=== PATIENT | female | born 1940 | race Caucasian/White ===

== ENCOUNTER 2020-04-06 07:19 | Emergency (ER) | payer MEDICARE, SELFPAY ==
[2020-04-06 07:27] VITALS: PULSE 65; RESP 17; TEMP 36.4; O2SAT 98; BMI 19.2
--- NOTE | 2020-04-06 07:32 | ED_ITS ---
HPI - Neuro Symptoms/Deficit General: Chief Complaint: Neuro Symptoms/Deficit Stated Complaint: THINKS SHE HAD A TIA Time Seen by Provider: 04/06/20 07:32 History of Present Illness: HPI Narrative: Patient is an 80-year-old female who comes to the ED with neuro symptoms. Past medical history of hypothyroidism and hyperlipidemia. Patient says this morning when she woke up she felt very dizzy and the room was spinning. Patient's is also present and states that she seemed a bit confused when she would talk. Patient says that symptoms resolved before arriving to the ED. She says currently she just feels tired. Denies any current neurological deficits such as vision changes, numbness, tingling or lack of sensation on face and extremities. Denies any weakness to one side of the body. Associated symptoms: Deny chest pain, headache(s), nausea or vomiting Review of Systems Const: Reports: fatigue; Denies: fever(s) or chills Eyes: Denies: change in vision or eye discomfort ENMT: Denies: throat pain, odynophagia, nasal discharge or nasal congestion Card: Denies: chest pain, palpitations, edema, swelling of feet/ankles, dyspnea on exertion or orthopnea Resp: Denies: dyspnea, productive cough or non-productive cough GI: Denies: abdominal pain, nausea, vomiting, diarrhea, constipation or hematochezia : Denies: flank pain, dysuria or hematuria Musc: Denies: neck pain, back pain or extremity swelling Skin/Breast: Denies: rash or new lesions Neuro: Reports: dizziness (Resolved before arrival to the ED) and confusion (resolved before arrival to the ED); Denies: headache(s), numbness in extremities or weakness in extremities [facility] ED PFSH: Social History Smoking and tobacco status: never smoked Physical Exam Const: COMMON NORMALS: no acute distress, patient oriented x3, healthy appearing and alert GENERAL APPEARANCE: cooperative and comfortable ORIENTATION/CONSCIOUSNESS: Yes oriented to person and Yes oriented to place HENMT: COMMON NORMALS: normocephalic HEAD & SCALP: normocephalic MOUTH: Normal oral and palatal mucosa present THROAT: posterior oropharynx normal and uvula midline Eye: COMMON NORMALS: Equal, round and reactive pupils present and EOMs intact bilaterally PUPIL: Yes Equal, round and reactive pupils present Neck/C-Spine: COMMON NORMALS: supple GENERAL: Yes normal visual inspection Resp: COMMON NORMALS: normal respiratory effort, No retractions, No use of accessory muscles and clear to auscultation bilaterally AUSCULTATION: clear to auscultation bilaterally Cardio: COMMON NORMALS: regular rate, regular rhythm, S1 normal heart sound present, S2 normal heart sound present, No gallops present (Cardio), No clicks present (Cardio), No murmurs present (Cardio) and Peripheral pulses 2+ throughout RATE: regular rate RHYTHM: regular rhythm HEART SOUNDS: S1 normal heart sound present and S2 normal heart sound present PERIPHERAL PULSES: Peripheral pulses 2+ throughout GI: COMMON NORMALS: Normal to inspection, nondistended, normoactive bowel sounds present, Soft to palpation, non-tender and no masses PALPATION: Yes S oft to palpation : COMMON NORMALS: Yes no CVA tenderness BLADDER/KIDNEY EXAM: Yes no CVA tenderness Back/Pelvis: COMMON NORMALS: no CVA tenderness Extremity: COMMON NORMALS: normal to inspection and no pedal edema Neuro: COMMON NORMALS: patient oriented x3, CN's II-XII intact bilaterally, moves all extremities, no focal motor deficits and no sensory deficits noted SENSORIUM/ORIENTATION: Yes alert, Yes oriented to person and Yes oriented to place COORDINATION/BALANCE: [id number]-up-[id number] test normal and wblo-sn-hejn test normal GAIT: Yes Normal gait present SENSORY EXAM: Yes extremities (intact) MOTOR EXAM: 5/5 motor strength present throughout COORDINATION: mohrwq-pl-eoyo test normal and zoqt-re-vyvj test normal Skin: COMMON NORMALS: no rashes or lesions noted GENERAL SKIN EXAM: no rashes or lesions noted and dry skin Course Reevaluation(s): Reevaluation #1: pt says she is experiencing some dizziness that comes and goes, but describes it as mild. Vital Signs: Vital signs: Vital Signs Temperature 97.5 F L 04/06/20 07:27 Pulse Rate 68 04/06/20 09:26 Respiratory Rate 18 04/06/20 09:26 Blood Pressure 156/81 04/06/20 09:26 Pulse Oximetry 98 04/06/20 09:26 MDM - Neuro Symptoms/Deficit MDM Narrative: Medical decision making narrative: pt is 80 y/o female that comes to the ED with dizziness and confusion. Symptoms resolved upon arrival to the ED. Neuro exam was normal and showed no deficits. CT of the head showed no acute findings. pt was still experiencing some mild dizziness. I told patient that i would like to do a CTA of neck and head to further evaluate for stroke, but pt denied getting CTA. I explained to her the possible risks and she understood. Pt was diagnosed with acute labrynthitis and given a prescription for plavix due to the risk of stroke. She will follow up the her PCP in the next 5 days. Pt was informed to come back to ED for reevaluation if symptoms worsen. pt understood and agreed with plan. Imaging Data^: CT Head: Attestation: I personally reviewed and interpreted this imaging study as follows: Radiologist's impression: [address] [address] [address] Scan Report Signed Patient: Roxanna Leone Unit #: [id number] : 1940 Age/Sex: 80 / F ADM Date: 04/06/20 Loc: ER Room/Bed: Attending Dr: Ordering Provider/Ordering MD: Surjit Branham Date of Service: 04/06/20 Procedure(s): CT head wo con* [id number] Accession Number(s): [id number] Report Number: [id number] PROCEDURE INFORMATION: Exam: CT Head Without Contrast Exam date and time: 04/06/2020 7:32 AM Age: 80 years old Clinical indication: Dizziness and speech disturbance; Patient HX: Onset of dizziness and transient loss of speech this a. M. History of TIA per patient. ; Additional info: Dizziness and unable to speak TECHNIQUE: Imaging protocol: Computed tomography of the head without contrast. Radiation optimization: All CT scans at this facility use at least one of these dose optimization techniques: automated exposure control; mA and/or kV adjustment per patient size (includes targeted exams where dose is matched to clinical indication); or iterative reconstruction. COMPARISON: CT head wo con* [id number] 07/14/2017 10:28 AM RADIATION DOSE METRICS: Total DLP: 637.69 mGy-cm FINDINGS: Brain: No hemorrhage. No edema, mass effect or midline shift. Mistry-white matter differentiation is preserved. There are basal ganglia calcifications.Periventricular and deep white matter hypodensities compatible with chronic microvascular ischemic changes. Ventricles: No ventriculomegaly. Bones/joints: No acute fracture. Sinuses: No acute sinusitis. Mastoid air cells: No mastoid effusion. Soft tissues: Unremarkable. CT/CT head wo con* [id number] IMPRESSION: No acute intracranial abnormality. Radiation Dose CTDIVOL = (mGy): DLP = 637.69 (mGy-cm) Dictated By: Johanna Greer MD Signed By: Johanna Greer MD Signed Date/Time: 04/06/20810 DD/ 9 Discharge Plan Discharge Patient Disposition: Home, Self-Care Clinical Impression: Acute labyrinthitis Qualifiers: Laterality: unspecified laterality Qualified Code(s): H83.09 - Labyrinthitis, unspecified ear Condition: Stable Prescriptions: New Plavix 75 mg tablet 75 mg PO DAILY Qty: 30 RF: 0 Discharge Orders: Discharge Order (Routine); Ordered 04/06/20 Ordered By: Surjit Branham Referrals: Royer Stockton DO [Primary Care Provider] - Discharge Diet: Regular Discharge Activity: Increase activity as tolerated Patient Instructions: Vertigo (ED), Benign Paroxysmal Positional Vertigo (ED) Activity Restrictions/Additional Instructions: Follow-up with your PCP in 5 days for reevaluation. Start taking Plavix as prescribed. PCP will determine length of Plavix course after evaluation. Discharge Date/Time: 04/06/20 09:31 Coding Level of Care Code ED Director Of Corporate Marketing for Chg Fwd Exam Comprehensive
--- NOTE | 2020-04-06 07:56 | PC.NURSE ---
Pt assisted to BSC, states she is dizzy but is steady on her feet. Urine sample requested at this time. Pt instructed on how to give sample.
[2020-04-06 09:26] VITALS: BP 156/81; PULSE 68; RESP 18; O2SAT 98
== END 2020-04-06 09:31 | disposition home or self-care (01) ==
PROVIDERS: Emergency Provider Physician Assistant; PCP Electrodiagnostic Medicine
DX: H83.09 Labyrinthitis, unspecified ear (principal); Z79.02 Long term (current) use of antithrombotics/antiplatelets
CPT/HCPCS: 12345; 70450; 99281; 99282

== ENCOUNTER → 2020-05-28 13:55 | Outpatient (BNVA) | payer MEDICARE, SELFPAY | PROVIDERS: PCP Electrodiagnostic Medicine; Referring Provider Dermatology; Visit Provider Dermatology | DX: L82.1 Other seborrheic keratosis (principal); B35.1 Tinea unguium; D69.2 Other nonthrombocytopenic purpura; Z12.83 Encounter for screening for malignant neoplasm of skin | CPT/HCPCS: 99203 ==

== ENCOUNTER 2021-01-26 09:11 | Outpatient (CLI) | payer MEDICARE, SELFPAY ==
--- NOTE | 2021-01-26 09:35 | XRR_ITS ---
PROCEDURE INFORMATION: Exam: XR Right Shoulder Exam date and time: 01/26/2021 9:49 AM Age: 80 years old Clinical indication: Pain; Shoulder; Right; Additional info: Chronic R shoulder pain/r rotator cuff syndrome TECHNIQUE: Imaging protocol: XR Right shoulder. Views: 2 or more views. COMPARISON: No relevant prior studies available. FINDINGS: Bones/joints: Mild degenerative changes are present with mild spurring on the glenoid. Otherwise the glenohumeral joint is unremarkable. There is no fracture or other acute abnormality. Soft tissues: Normal. XR/XR shoulder RT min 2V* [id number] IMPRESSION: Mild degenerative disease. No acute abnormality.
== END 2021-01-26 09:12 | disposition home or self-care (01) ==
PROVIDERS: PCP Electrodiagnostic Medicine; Visit Provider Electrodiagnostic Medicine
DX: M75.101 Unspecified rotator cuff tear or rupture of right shoulder, not specified as traumatic (principal); M19.011 Primary osteoarthritis, right shoulder
CPT/HCPCS: 73030

== ENCOUNTER 2023-04-17 08:54 | Emergency (ER) | payer MEDICARE, SELFPAY ==
[2023-04-17 09:02] VITALS: BP 153/69; PULSE 68; RESP 18; TEMP 36.7; O2SAT 97
--- NOTE | 2023-04-17 09:19 | CT_ITS ---
WS: [id number] CT HEAD NONCONTRAST HISTORY: tia TECHNIQUE: Contiguous axial imaging performed through the brain in 2.5 mm imaging. Bone and soft tiss ue windows. Sagittal and coronal reformats reviewed. All CT scans at [facility] use at least one of these dose optimization techniques: automated exposure control; mA and/or kV adjustment per pa tient size (includes targeted exams where dose is matched to clinical indication); or iterative recon struction. DLP: 995.44 mGy.cm COMPARISON: 04/06/2020 No acute intracranial hemorrhage, midline shift or mass effect. Moderate atrophy and small vessel ischemic disease similar to the prior study. Multiple small lacunar infarcts in the basal ganglia. No new area of sulcal effacement. Mild cerebellar atrophy. Ventricles: Normal size with no hydrocephalus. No inferior displacement of the cerebellar tonsils. Paranasal sinuses: As visualized are clear. Mastoid air cells: Well pneumatized. Calvarium and scalp: Skull is intact with no soft tissue edema or swelling. Moderate atherosclerotic plaque in the distal vertebral arteries and the intracranial carotid arterie s. CT/CT head wo con* [id number] IMPRESSION: 1. No acute intracranial hemorrhage or edema. 2. Moderate atrophy and small vessel ischemic disease. 3. Multiple small bilateral lacunar infarcts. 4. Moderate atherosclerotic burden in the distal vertebral and intracranial ca rotid arteries.
--- NOTE | 2023-04-17 09:24 | W.ED.NEUROSD ---
HPI - Neuro Symptoms/Deficit General: Chief Complaint: Neuro Symptoms/Deficit Stated Complaint: memory loss, speech problems Time Seen by Provider: 04/17/23 09:14 Source: patient Mode of arrival: ambulatory History of Present Illness: 83-year-old female presents to the emergency room with complaints of difficulty with speech. She was out walking this morning could not remember some people's names felt like she was slurring her words. It is improved now. She has a history of TIAs she was previously on full-strength aspirin and a few weeks ago changed to clopidogrel and is on lovastatin she tells me 40 mg daily. No chest pain no other symptoms this time no slurring of the words this time she was seen her stroke score is 0. Patient had previously been taking at 325 mg aspirin daily was changed to clopidogrel because of her concern for it exacerbating dyspepsia and reflux. She is on statin remains on lovastatin 40 mg daily. She denies any chest pain. Onset (ago): hour(s) Time: 08:54 Last Observed Normal: 21:00 Timing confirmed by: spouse Location: speech History of same: Yes Severity: mild Relieving factors: none Exacerbating factors: none Associated symptoms: Deny chest pain, cough, diaphoresis, fevers/chills, headache(s), anorexia, malaise, nausea, seizures, short of breath, syncope, tingling, vertigo, vomiting or weakness Treatments Prior to Arrival: none Review of Systems Const: Denies: malaise or diaphoresis ENMT: Denies: throat pain, ear or mastoid pain, nasal discharge or nasal congestion Card: Denies: chest pain or syncope Resp: Denies: dyspnea, productive cough or non-productive cough GI: Denies: nausea or vomiting : Denies: flank pain, difficulty voiding, dysuria, urinary frequency or urinary urgency Skin/Breast: Denies: rash or pruritus Neuro: Denies: headache(s) or vertigo PFSH ED PFSH: Medical History TIA (transient ischemic attack) Surgical History H/O eye surgery H/O right wrist surgery Social History Smoking and tobacco status: never smoked Alcohol intake: never NIH stroke score NIHSS: Level Of Consciousness - 1a: 0 Level Of Consciousness Questions - 1b: Both Correct Level Of Consciousness Commands - 1c: Both Correct Best Gaze - 2: Normal Visual Lauren - 3: No Visual Loss Facial Palsy - 4: Normal Motor Arm Right - 5: No Drift Motor Arm Left - 5: No Drift Motor Leg Right - 6: No Drift Motor Leg Left - 6: No Drift Limb Ataxia - 7: Absent Sensory - 8: Normal Best Language - 9: No Aphasia Dysarthia - 10: Normal Extinction And Inattention - 11: 0 Score: Total Score: 0 Course Vital Signs: Vital signs: Vital Signs Temperature 98.1 F 04/17/23 09:02 Pulse Rate 58 L 04/17/23 11:20 Respiratory Rate 16 04/17/23 11:20 Blood Pressure 133/63 04/17/23 11:20 Pulse Oximetry 97 04/17/23 11:20 Oxygen Delivery Me thod Room Air 04/17/23 09:02 MDM - Neuro Symptoms/Deficit Medical Decision Making Patient is some word finding issues on occasion but no slurring of speech no other focal neurologic deficits noted. She is outside any kind of window for intervention her stroke score is essentially 0. Given her history and reported symptoms she had earlier today we will go ahead and have her start taking a baby aspirin again continue the Plavix and the lovastatin and follow-up with her primary care doctor return if she has further problems. Medical Records I reviewed the patient's medical records. Lab Data I reviewed the patient's lab results. Radiology Impressions Head CT 04/17/23 09:19 IMPRESSION: 1. No acute intracranial hemorrhage or edema. 2. Moderate atrophy and small vessel ischemic disease. 3. Multiple small bilateral lacunar infarcts. 4. Moderate atherosclerotic burden in the distal vertebral and intracranial carotid arteries. Discharge Plan Discharge Patient Disposition: Home Clinical Impression: Transient cerebral ischemia Condition: Stable Prescriptions: New aspirin 81 mg tablet,delayed release (DR/EC) 81 mg PO DAILY Qty: 30 0RF No Action lovastatin 40 mg tablet 40 mg PO DAILY levothyroxine 50 mcg tablet 50 mcg PO QAM vitamin [id number] acid 0.5-1 mg Tablet 1 tab PO DAILY Women's 50 Plus Multivitamin 400 mcg-500 mg calcium-20 mcg Tablet 1 tab PO DAILY zinc acetate 50 mg (zinc) Capsule 25 mg PO BID Calcium 600 600 mg calcium (1,500 mg) Tablet 600 mg PO DAILY cranberry 400 mg Capsule 400 mg PO DAILY Rx Instructions: administer with a meal vitamin B complex Tablet 1 tab PO DAILY Vitamin C 500 mg Tablet Extended Release 500 mg PO DAILY CoQ-10 30 mg Capsule 30 mg PO DAILY magnesium 200 mg Tablet 200 mg PO DAILY Vitamin D3 25 mcg (1,000 unit) Tablet 25 mcg PO DAILY melatonin 5 mg Tablet 5 mg PO BID curcumin-phosphatidylcholine 500 mg Capsule 500 mg PO DAILY Discharge Orders: Discharge ED (Routine); Ordered 04/17/23 Ordered By: Geoffrey Willis Referrals: Royer Stockton, [Primary Care Provider] - Discharge Diet: Usual diet Discharge Activity: Resume usual activity Patient Instructions: Opioid Safety, Pain Management Activity Restrictions/Additional Instructions: Continue to take your previously prescribed medications especially the clopidogrel and simvastatin. You should add a baby aspirin daily follow-up with your primary care doctor. Coding Level of Care Code ED Veterans Contact Representative for Macy Schwab
[2023-04-17 11:20] VITALS: BP 133/63; PULSE 58; RESP 16; O2SAT 97
== END 2023-04-17 11:20 | disposition home or self-care (01) ==
PROVIDERS: Emergency Provider Family Medicine; PCP Electrodiagnostic Medicine
DX: G45.9 Transient cerebral ischemic attack, unspecified (principal); Z86.73 Personal history of transient ischemic attack (TIA), and cerebral infarction without residual deficits
CPT/HCPCS: 70450; 99284

== ENCOUNTER → 2023-07-18 15:12 | Outpatient (BNVA) | payer MEDICARE, SELFPAY | PROVIDERS: PCP Electrodiagnostic Medicine; Visit Provider Nurse Practitioner Family | DX: L82.1 Other seborrheic keratosis (principal); L81.4 Other melanin hyperpigmentation; L57.8 Other skin changes due to chronic exposure to nonionizing radiation; D22.5 Melanocytic nevi of trunk; Z12.83 Encounter for screening for malignant neoplasm of skin | CPT/HCPCS: 99213 ==

== ENCOUNTER 2023-11-16 11:15 | Outpatient (CLI) | payer MEDICARE, SELFPAY ==
--- NOTE | 2023-11-16 11:22 | MM_ITS ---
WS: [id number] BILATERAL SCREENING DIGITAL TOMOSYNTHESIS MAMMOGRAM WITH CAD HISTORY: SCREEN COMPARISON: 05/20/2016 Bilateral CC and MLO views with tomosynthesis and synthetic mammography submitted. Computer aided det ection analyzed. Breast composition: The breasts are heterogeneously dense, which may obscure small masses. No suspici ous masses, microcalcifications or architectural distortion. IMPRESSION: MM/[place] [id number] BI-RADS: 1-Negative FOLLOW UP: 1 Year Follow-up
== END 2023-11-16 11:16 | disposition home or self-care (01) ==
LOC: RAD 11:16
PROVIDERS: PCP Electrodiagnostic Medicine; Visit Provider Electrodiagnostic Medicine
DX: Z12.31 Encounter for screening mammogram for malignant neoplasm of breast (principal)
CPT/HCPCS: 77063; 77067

== ENCOUNTER → 2024-07-18 11:07 | Outpatient (BNVA) | payer MEDICARE, SELFPAY | PROVIDERS: PCP Electrodiagnostic Medicine; Visit Provider Nurse Practitioner Family | DX: D48.5 Neoplasm of uncertain behavior of skin (principal); L82.1 Other seborrheic keratosis; L81.4 Other melanin hyperpigmentation; L57.8 Other skin changes due to chronic exposure to nonionizing radiation; D22.5 Melanocytic nevi of trunk | CPT/HCPCS: 11102; 99213 ==

== ENCOUNTER 2024-08-22 11:17 | Emergency (ER) | payer MEDICARE, SELFPAY ==
[2024-08-22 11:23] VITALS: BP 110/64; PULSE 64; RESP 18; TEMP 36.7; O2SAT 98
[2024-08-22 11:29] VITALS: PULSE 70; RESP 16; O2SAT 100
--- NOTE | 2024-08-22 11:29 | ECG_ITS ---
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
--- NOTE | 2024-08-22 11:29 | CT_ITS ---
WS: [id number] CT HEAD NONCONTRAST HISTORY: Symptoms of acute stroke TECHNIQUE: Contiguous axial imaging performed through the brain. Bone and soft tissue windows. Sagitt al and coronal reformats reviewed. All CT scans at [facility] use at least one of these dose optimization techniques: automated exposure control; mA and/or kV adjustment per patient size (includ es targeted exams where dose is matched to clinical indication); or iterative reconstruction. DLP: 1023.3 mGy COMPARISON: 04/17/2023 No acute intracranial hemorrhage, midline shift or mass effect. Moderate atrophy and small vessel ischemic disease. Tiny lacunar infarcts are stable. No new infarct or edema. Moderate cerebellar atrophy. Ventricles: Normal size with no hydrocephalus. Paranasal sinuses: As visualized are clear. Mastoid air cells: Well pneumatized. Calvarium and scalp: Skull is intact with no soft tissue edema or swelling. CT/CT head thrombolytic [id number] IMPRESSION: 1. No acute intracranial hemorrhage or edema. 2. Moderate atrophy and small vessel ischemic disease. Stable lacunar infarcts and small vessel disease.
--- NOTE | 2024-08-22 11:30 | W.ED.NEUROSD ---
HPI - Neuro Symptoms/Deficit General: Chief Complaint: Altered Mental Status Stated Complaint: ams Time Seen by Provider: 08/22/24 11:19 Source: patient and EMS Mode of arrival: EMS History of Present Illness: This patient was transported from the [facility] by EMS. She states that today she was in quite a hurry to get to a hair appointment and felt like that she was driving erratically but she felt that as if this might be related to her lack of concentration on her driving. She then arrived at that her appointment and she thought she was not enunciating her words as clearly as normal. She finished her hair appointment and then proceeded to drive to the [employer]. She then called her for the library parking lot and explained her symptoms to him he called EMS and she was transported to the emergency department. She has a history of prior TIAs and takes antiplatelet medication. She states she has not taken her morning medicine and did not take her medicines yesterday because she had a procedure at another facility. She denies any concomitant headache, focal weakness but does state her she has some tingling in her both lower extremities. She denies any fevers chills nausea vomiting diarrhea history of diabetes falls head trauma etc. Location: speech Severity: mild On Anticoagulants: Yes Associated symptoms: Deny chest pain, headache(s), nausea, syncope or vomiting Related Data Home Medications Medication Instructions Recorded Confirmed ascorbic acid (vitamin C) 500 mg 500 mg PO DAILY 04/17/23 08/22/24 tablet,extended release (Vitamin C ER) calcium carbonate (Calcium 600) 600 mg PO DAILY 04/17/23 08/22/24 cholecalciferol (vitamin D3) 25 25 mcg PO DAILY 04/17/23 08/22/24 mcg (1,000 unit) tablet (Vitamin D3) coenzyme Q10 30 mg capsule 30 mg PO DAILY 04/17/23 08/22/24 cranberry 400 mg capsule 400 mg PO DAILY 04/17/23 08/22/24 curcumin-phosphatidylcholine 500 500 mg PO DAILY 04/17/23 08/22/24 mg capsule levothyroxine 50 mcg tablet 50 mcg PO QAM 04/17/23 08/22/24 lovastatin 40 mg tablet 40 mg PO DAILY 04/17/23 08/22/24 magnesium 200 mg tablet 200 mg PO DAILY 04/17/23 08/22/24 melatonin 5 mg tablet 5 mg PO BID 04/17/23 08/22/24 [id number] ac 400 1 tab PO DAILY 04/17/23 08/22/24 mcg-calcium carb 500 mg-vit K1 20 mcg tablet (Women's 50 Plus Multivitamin) clopidogrel 75 mg tablet 75 mg PO DAILY 08/22/24 08/22/24 sertraline 25 mg tablet 25 mg PO DAILY 08/22/24 08/22/24 Previous Rx's Medication Instructions Recorded aspirin 81 mg tablet,delayed 81 mg PO DAILY #30 tabs 04/17/23 release Allergies Allergy/AdvReac Type Severity Reaction Status Date / Time Penicillins Allergy ALGY-Rash Verified 04/17/23 09:44 Review of Systems Const: Denies: fever(s) or chills Eyes: Denies: change in vision ENMT: Denies: throat pain, odynophagia, nasal discharge or nasal congestion Card: Denies: chest pain, palpitations, irregular heart rhythm, syncope or pre-syncope Resp: Denies: dyspnea, productive cough or non-productive cough GI: Denies: abdominal pain, nausea or vomiting : Denies: flank pain, difficulty voiding or dysuria Musc: Denies: neck pain, back pain, extremity pain or extremity swelling Skin/Breast: Denies: rash Neuro: Reports: difficulty communicating thoughts; Denies: headache(s), numbness in extremities or weakness in extremities Psych: Denies: anxiety or depression PFSH ED PFSH: Medical History TIA (transient ischemic attack) Surgical History H/O eye surgery H/O right wrist surgery Social History Smoking and tobacco/nicotine status: never used tobacco/nicotine Alcohol intake: never NIH stroke score NIHSS: Level Of Consciousness - 1a: 0 Level Of Consciousness Questions - 1b: Both Correct Level Of Consciousness Commands - 1c: Both Correct Best Gaze - 2: Normal Visual Lauren - 3: No Visual Loss Facial Palsy - 4: Normal Motor Arm Right - 5: No Drift Motor Arm Left - 5: No Drift Motor Leg Right - 6: No Drift Motor Leg Left - 6: No Drift Limb Ataxia - 7: Absent Sensory - 8: Normal Best Language - 9: No Aphasia Dysarthia - 10: Normal Extinction And Inattention - 11: 0 Score: Total Score: 0 Physical Exam Narrative: EXAM NARRATIVE: Patient is alert cooperative makes good eye contact and speech is goal-directed. Const: COMMON NORMALS: no acute distress, average body habitus and patient oriented x3 GENERAL APPEARANCE: cooperative and comfortable HENMT: COMMON NORMALS: normocephalic, Normal nasal mucous membranes and turbinates present, moist oral mucous membranes and oropharynx normal HEAD & SCALP: normocephalic FACE & SINUS: normal facial exam and face symmetric NOSE: Normal nasal mucous membranes and turbinates present Eye: COMMON NORMALS: Equal, round and reactive pupils present, conjunctivae normal and normal visual lauren by confrontation CONJUNCTIVA: Yes conjunctivae normal PUPIL: Yes Equal, round and reactive pupils present Neck/C-Spine: COMMON NORMALS: full ROM, no lymphadenopathy, no JVD and No carotid bruits Chest: COMMONS NORMALS: normal inspection of the chest Resp: COMMON NORMALS: normal respiratory effort, No retractions, No use of accessory muscles and clear to auscultation bilaterally AUSCULTATION: clear to auscultation bilaterally Cardio: COMMON NORMALS: no JVD, regular rate, regular rhythm, No murmurs present (Cardio) and Peripheral pulses 2+ throughout RATE: regular rate RHYTHM: regular rhythm PERIPHERAL PULSES: Peripheral pulses 2+ throughout GI: COMMON NORMALS: Normal to inspection, nondistended, normoactive bowel sounds present, Soft to palpation and non-tender PALPATION: Yes Soft to palpation : COMMON NORMALS: Yes no CVA tenderness BLADDER/KIDNEY EXAM: Yes no CVA tenderness Back/Pelvis: COMMON NORMALS: no CVA tenderness, thoracic and lumbar spine normal to inspection, no thoracic nor lumbar tenderness and thoraco-lumbar ROM normal Extremity: COMMON NORMALS: normal to inspection, full ROM, capillary refill normal, no calf tenderness and no pedal edema Neuro: COMMON NORMALS: patient oriented x3, moves all extremities, no focal motor deficits and no sensory deficits noted CRANIAL NERVES: Yes CN normal except as noted Psych: COMMON NORMALS: mental status grossly normal Skin: COMMON NORMALS: no rashes or lesions noted, no wounds and turgor normal GENERAL SKIN EXAM: no rashes or lesions noted and turgor normal Course Reevaluation(s): Reevaluation #1: Patient cindi clinically stable. Ambulating CT is reassuring with no evidence of acute change or hemorrhage etc. Does have evidence of small vessel disease and prior lacunar infarcts. No indication for aggressive therapy other than usual therapy for ischemic vascular disease at this time. Time: 12:29 Reevaluation #2: Patient still remained stable. is now present states that she is about 85% of her normal. She did have anesthesia yesterday which may or may not had an impact on her functioning today. I did review with Dr. Leyva who requested a MRI if possible. Time: 14:08 Reevaluation #3: Patient's MRI was reassuring without any evidence of obvious infarct. Discussed current findings with the patient and spouse. At this point no changes in therapy indicated. Time: 16:33 Consultations: Consultation #1: Discussed with on-call neurology Dr. Leyva came to the emergency department and evaluated the patient as well. Time: 14:09 Vital Signs: Vital signs: Vital Signs Temperature 98.1 F 08/22/24 11:23 Pulse Rate 70 08/22/24 16:24 Respiratory Rate 16 08/22/24 16:24 Blood Pressure 143/58 08/22/24 16:24 Pulse Oximetry 90 08/22/24 16:24 Oxygen Delivery Me thod Room Air 08/22/24 16:24 MDM - Neuro Symptoms/Deficit Medical Decision Making This patient presented to the emergency department as noted in the history of present illness. There was some question of whether she was having some word finding difficulty earlier today it is not clear if that began today or yesterday evening. She had a prolonged sedation for both upper and lower endoscopy yesterday and had not eaten or taken her usual medications. However her presentation suggested possible TIA or possible small infarct and workup ensued to evaluate potential pathology. Initial imaging showed evidence of small vessel disease with prior lacunar infarcts. No other perturbations in ancillary studies noted. The case was discussed with on-call neurology who recommended MRI. MRI was reassuring and the case was further discussed with neurology. No indications for further intervention or change in therapy. She is on statin therapy as well as clopidogrel at this time. The patient is currently stable to be discharged to outpatient follow-up Lab Data I reviewed the patient's lab results. 08/22/24 11:40 08/22/24 12:[address] 08/22/24 11:29 IMPRESSION: 1. No acute intracranial hemorrhage or edema. 2. Moderate atrophy and small vessel ischemic disease. Stable lacunar infarcts and small vessel disease. Head MRI 08/22/24 14:12 IMPRESSION: 1. No evidence of restricted diffusion to suggest acute ischemia. 2. Moderate small vessel changes with moderate parenchymal volume loss progressed since 2017. 3. No other acute findings. Laboratory Results WBC 6.20 10^3/uL (3.29-11.43) 08/22/24 11:40 RBC 4.32 10^6/uL (3.85-5.65) 08/22/24 11:40 Hgb 13.50 g/dL (11.27-16.99) 08/22/24 11:40 Hct 39.7 % (36-47) 08/22/24 11:40 MCV 91.9 fl (85-98) 08/22/24 11:40 MCH 31.3 pg (27-33) 08/22/24 11:40 MCHC 34.0 g/dL (30-55) 08/22/24 11:40 RDW 12.4 % (12.1-15.1) 08/22/24 11:40 Plt Count 187 10^3/cmm (157-399) 08/22/24 11:40 MPV 9.3 fL (7.4-10.4) 08/22/24 11:40 Neut % (Auto) 55.5 % 08/22/24 11:40 Lymph % (Auto) 28.7 % 08/22/24 11:40 [place] % (Auto) 10.8 % 08/22/24 11:40 Eos % (Auto) 4.0 % 08/22/24 11:40 Baso % (Auto) 0.8 % 08/22/24 11:40 Neut # (Auto) 3.44 10^3/uL (1.8-7.7) 08/22/24 11:40 Lymph # (Auto) 1.8 10^3/uL (0.8-4.8) 08/22/24 11:40 [place] # (Auto) 0.7 10^3/uL (0.2-0.9) 08/22/24 11:40 Eos # (Auto) 0.3 10^3/uL (0.0-0.8) 08/22/24 11:40 Baso # (Auto) 0.1 10^3/uL (0.0-0.1) 08/22/24 11:40 Nucleated RBC % (auto) 0 % 08/22/24 11:40 Nucleated RBCs # 0.0 /100WBC 08/22/24 11:40 PT 12.50 SECONDS (12.1-14.9) 08/22/24 12:35 INR 0.91 (0.8-1.2) 08/22/24 12:35 APTT 23.7 SECONDS (23.9-36.7) L 08/22/24 12:35 Sodium 140 mmol/L (136-145) 08/22/24 12:35 Potassium 3.8 mmol/L (3.5-5.1) 08/22/24 12:35 Chloride 104 mmol/L (98-107) 08/22/24 12:35 Carbon Dioxide 27 mmol/L (22-29) 08/22/24 12:35 Anion Gap 12.8 (5-19) 08/22/24 12:35 BUN 20 mg/dL (8-23) 08/22/24 12:35 Creatinine 0.7 mg/dL (0.5-0.9) 08/22/24 12:35 GFR Calculation Not Reportable 08/22/24 12:35 Glucose 93 mg/dL (65-115) 08/22/24 12:35 POC Glucose 84 mg/dL (70-110) 08/22/24 11:55 Calculated Osmolality 292 mOsm/kg (285-295) 08/22/24 12:35 Calcium 8.9 mg/dL (8.5-10.5) 08/22/24 12:35 Total Bilirubin 0.4 mg/dL (0.15-1.2) 08/22/24 12:35 AST 21 U/L (0-32) 08/22/24 12:35 ALT 18 U/L (0-33) 08/22/24 12:35 Alkaline Phosphatase 74 U/L (35-105) 08/22/24 12:35 Total Protein 6.4 g/dL (6.6-8.7) L 08/22/24 12:35 Albumin 4.2 g/dL (3.5-5.2) 08/22/24 12:35 Globulin 2.2 g/dL (1.3-4.6) 08/22/24 12:35 Urine Color Yellow (Yellow) 08/22/24 12:00 Urine Appearance Clear (CLEAR) 08/22/24 12:00 Urine pH 6.5 (5-7) 08/22/24 12:00 Ur Specific [place] 1.016 (1.005-1.030) 08/22/24 12:00 Urine Protein Negative (Negative) 08/22/24 12:00 Urine Glucose (UA) Negative (Normal) 08/22/24 12:00 Urine Ketones Negative (Negative) 08/22/24 12:00 Urine Blood Negative (Negative) 08/22/24 12:00 Urine Nitrate Negative (Negative) 08/22/24 12:00 Urine Bilirubin Negative (Negative) 08/22/24 12:00 Urine Urobilinogen 1.0 mg/dL (Negative) 08/22/24 12:00 Ur Leukocyte Esterase Negative (Negative) 08/22/24 12:00 Urine RBC 0-2 /hpf (0-2) 08/22/24 12:00 Urine WBC 0-5 /hpf (0-5) 08/22/24 12:00 Ur Squamous Epith Cells 0-5 /hpf (0-5) 08/22/24 12:00 Amorphous Sediment Not Reportable 08/22/24 12:00 Urine Bacteria None seen /hpf (NONE) 08/22/24 12:00 Hyaline Casts 0.81 /lpf 08/22/24 12:00 All radiology interpretation(s) finalized by discharge EKG Data EKG 1: I personally reviewed and interpreted this EKG as follows: Interpretation: Contemporaneous review of resting EKG reveals normal sinus rhythm of 61 bpm. Normal NE interval, QRS duration, corrected QT interval. Normal axis. No acute ST-T wave changes or other acute changes at this time. Discharge Plan Discharge Patient Disposition: Home Clinical Impression: Multiple lacunar infarcts, Cerebral atherosclerosis Prescriptions: No Action lovastatin 40 mg tablet 40 mg PO DAILY levothyroxine 50 mcg tablet 50 mcg PO QAM Women's 50 Plus Multivitamin 400 mcg-500 mg calcium-20 mcg Tablet 1 tab PO DAILY calcium carbonate [Calcium 600] 600 mg calcium (1,500 mg) Tablet 600 mg PO DAILY cranberry 400 mg Capsule 400 mg PO DAILY Rx Instructions: administer with a meal ascorbic acid (vitamin C) [Vitamin C] 500 mg Tablet Extended Release 500 mg PO DAILY coenzyme Q10 [CoQ-10] 30 mg Capsule 30 mg PO DAILY magnesium 200 mg Tablet 200 mg PO DAILY cholecalciferol (vitamin D3) [Vitamin D3] 25 mcg (1,000 unit) Tablet 25 mcg PO DAILY melatonin 5 mg Tablet 5 mg PO BID curcumin-phosphatidylcholine 500 mg Capsule 500 mg PO DAILY aspirin 81 mg tablet,delayed release (DR/EC) 81 mg PO DAILY Qty: 30 0RF clopidogrel 75 mg tablet 75 mg PO DAILY sertraline 25 mg tablet 25 mg PO DAILY Discharge Orders: Discharge ED (Routine); Ordered 08/22/24 Ordered By: Ernst Shah Referrals: Royer Stockton DO [Primary Care Provider] - Discharge Diet: Usual diet Discharge Activity: Increase activity as tolerated Patient Instructions: Altered Mental Status (ED), Opioid Safety, Pain Management Activity Restrictions/Additional Instructions: As we discussed during your emergency department stay you have changes consistent with small vessel disease and atherosclerosis or hardening of the arteries of within your brain. These sometimes cause the symptoms you have experienced in the past and again in the last 24 hours. Your imaging did not reveal any other more serious conditions at this time. We recommended that you continue your current medications and follow-up with neurology, Dr. Leyva in the next 2 to 4 weeks. If you develop any new or worsening symptoms or other concerns you are welcome to return to the emergency department for reevaluation. Coding Level of Care Code ED Documentation Consultant for Macy Schwab
[2024-08-22 11:49] LABS: Basophils # 0.1 10^3/uL (0.0-0.1); Basophils % 0.8 %; Eosinophils # 0.3 10^3/uL (0.0-0.8); Hematocrit 39.7 % (36-47); Lymphocytes # 1.8 10^3/uL (0.8-4.8); Lymphocytes % 28.7 %; Mean Corpuscular Hemoglobin 31.3 pg (27-33); Mean Corpuscular Volume 91.9 fl (85-98); Mean Platelet Volume 9.3 fL (7.4-10.4); Monocytes # 0.7 10^3/uL (0.2-0.9); Monocytes % 10.8 %; Neutrophils # 3.44 10^3/uL (1.8-7.7); Neutrophils % 55.5 %; Nucleated Red Blood Cells % 0 %; Platelet Count 187 10^3/cmm (157-399); Red Blood Count 4.32 10^6/uL (3.85-5.65); Red Cell Distribution Width 12.4 % (12.1-15.1)
[2024-08-22 12:00] LABS: Glucose Point of Care 84 mg/dL (70-110)
[2024-08-22 12:20] LABS: Bilirubin Urine Negative (Negative); Blood Urine Negative (Negative); Glucose Urine UA Negative (Normal); Ketones Urine Negative (Negative); Leukocyte Esterase Urine Negative (Negative); Nitrate Urine Negative (Negative); Protein Urine Negative (Negative); Specific Gravity, Urine 1.016 (1.005-1.030); Urine Appearance Clear (CLEAR); Urine Color Yellow (Yellow); pH Urine 6.5 (5-7)
[2024-08-22 12:22] LABS: Add Urine Microscopic? YES; Bacteria Urine None Seen /hpf; Hyaline Casts Urine 0.81 /lpf; RBC Urine 0-2 /hpf (0-2); Squamous Epithelial Cell Urine 0-5 /hpf (0-5); WBC Urine 0-5 /hpf (0-5)
[2024-08-22 13:16] LABS: Alanine Aminotransferase 18 U/L (0-33); Albumin Level 4.2 g/dL (3.5-5.2); Alkaline Phosphatase 74 U/L (35-105); Anion Gap 12.8 (5-19); Aspartate Amino Transferase 21 U/L (0-32); Blood Urea Nitrogen 20 mg/dL (8-23); Calcium 8.9 mg/dL (8.5-10.5); Carbon Dioxide 27 mmol/L (22-29); Chloride 104 mmol/L (98-107); Globulin 2.2 g/dL (1.3-4.6); Glucose 93 mg/dL (65-115); Osmolality Calculated 292 mOsm/kg (285-295); Potassium 3.8 mmol/L (3.5-5.1); Sodium 140 mmol/L (136-145); Total Bilirubin 0.4 mg/dL (0.15-1.2); Total Protein 6.4 g/dL (6.6-8.7)
[2024-08-22 13:18] LABS: INR 0.91 (0.8-1.2); Partial Thromboplastin Time 23.7 SECONDS (23.9-36.7)
--- NOTE | 2024-08-22 14:12 | MR_ITS ---
WS: [id number] MRI HEAD WITHOUT CONTRAST TECHNIQUE: Sagittal T1, T2 axial, T2 axial FLAIR, axial and coronal T1 images, axial susceptibility w eighted imaging, axial diffusion weighted images, and coronal T2 images were obtained. CLINICAL INFORMATION: possible small vessel infarct COMPARISON: MRI 2017 FINDINGS: No evidence of restricted diffusion to suggest acute ischemia. Moderate small vessel changes with mod erate parenchymal volume loss. Normal posterior fossa. Normal vascular flow voids at the skull base. No extra-axial fluid collections. No evidence of mass or mass effect. Paranasal sinuses are well aerated. Mastoid air cells are well aerated. Normal posterior nasopharynx. No hemosiderin on susceptibility-weighted images. Normal optic chiasm and pituitary infundibulum. Mi ld symmetric atrophy temporal lobes and hippocampal formations. No other acute findings MR/MR head wo con* [id number] IMPRESSION: 1. No evidence of restricted diffusion to suggest acute ischemia. 2. Moderate small vessel changes with moderate parenchymal volume loss progres sed since 2017. 3. No other acute findings.
[2024-08-22 16:24] VITALS: BP 143/58; PULSE 70; RESP 16; O2SAT 90
[2024-08-22 16:52] VITALS: BP 140/60; PULSE 77; RESP 18; O2SAT 97
== END 2024-08-22 16:54 | disposition home or self-care (01) ==
PROVIDERS: Emergency Provider Emergency Medicine; PCP Electrodiagnostic Medicine
DX: I63.81 Other cerebral infarction due to occlusion or stenosis of small artery (principal); I67.2 Cerebral atherosclerosis; Z79.02 Long term (current) use of antithrombotics/antiplatelets; Z79.82 Long term (current) use of aspirin; Z86.73 Personal history of transient ischemic attack (TIA), and cerebral infarction without residual deficits
CPT/HCPCS: 36415; 36416; 70450; 70551; 80053; 81001; 82962; 85025; 85610; 85730; 93005; 99284

== ENCOUNTER → 2025-03-21 09:40 | Outpatient (BNVA) | payer MEDICARE, SELFPAY | PROVIDERS: PCP Electrodiagnostic Medicine; Visit Provider Nurse Practitioner Family | DX: L81.4 Other melanin hyperpigmentation (principal); L57.8 Other skin changes due to chronic exposure to nonionizing radiation; D22.5 Melanocytic nevi of trunk; L82.0 Inflamed seborrheic keratosis; Z78.9 Other specified health status; R20.8 Other disturbances of skin sensation; L53.8 Other specified erythematous conditions; L29.89 Other pruritus; D48.5 Neoplasm of uncertain behavior of skin | CPT/HCPCS: 11102; 17110; 99213 ==

== ENCOUNTER → 2025-07-22 15:00 | Outpatient (BNVA) | payer MEDICARE, SELFPAY | PROVIDERS: PCP Electrodiagnostic Medicine; Visit Provider Nurse Practitioner Family | DX: L21.8 Other seborrheic dermatitis (principal); L57.8 Other skin changes due to chronic exposure to nonionizing radiation; L81.4 Other melanin hyperpigmentation; D22.39 Melanocytic nevi of other parts of face; L82.1 Other seborrheic keratosis | CPT/HCPCS: 99214 ==

== ENCOUNTER 2025-07-31 04:29 | Emergency (ER) | payer MEDICARE, SELFPAY ==
[2025-07-31 04:30] VITALS: BP 149/66; PULSE 61; RESP 18; TEMP 36.5; O2SAT 100; BMI 18.4
--- NOTE | 2025-07-31 04:30 | XRR_ITS ---
PROCEDURE INFORMATION: Exam: XR Chest Exam date and time: 07/31/2025 4:43 AM Age: 85 years old Clinical indication: Pain; Angina pectoris; Additional info: Cp TECHNIQUE: Imaging protocol: Radiologic exam of the chest. Views: 1 view. COMPARISON: CR XR KUB [id number] 02/18/2025 12:10 PM FINDINGS: Lungs: Unremarkable. No consolidation. Pleural spaces: Unremarkable. No pleural effusion. No pneumothorax. Heart/Mediastinum: Unremarkable. No cardiomegaly. Bones/joints: Unremarkable. XR/XR chest 1V portable [id number] IMPRESSION: No acute findings.
--- NOTE | 2025-07-31 04:32 | ECG_ITS ---
[facility] Test Date: 2025-07-31 Pat Name: Roxanna Leone Department: Room: Gender: Female Trust Manager Assistant: : 1940 Requested By: Hector Childers Order Number: [id number] Reading MD: RAPHAEL VILLARREAL Measurements Intervals Kiefer Rate: 57 P: 86 [place]: 177 QRS: 69 QRSD: 94 T: 79 QT: 408 QTc: 399 Interpretive Statements SINUS BRADYCARDIA INCOMPLETE RIGHT BUNDLE BRANCH BLOCK [90+ ms QRS DURATION, TERMINAL R IN V1/V2, 40+ ms S IN I/aVL/V4/V5/V6] Compared to ECG 08/22/2024 11:31:42 Incomplete right bundle-branch block now present Sinus rhythm no longer present Electronically Signed On 08-02-2025 21:37:34 CDT by RAPHAEL VILLARREAL [email or web address]
--- NOTE | 2025-07-31 04:33 | W.ED.CHESTPA ---
HPI - Chest Pain General: Chief Complaint: Chest Pain Stated Complaint: Early signs of Heart attack Time Seen by Provider: 07/31/25 04:31 Source: patient Mode of arrival: ambulatory Limitations: no limitations History of Present Illness: 85-year-old female states that she has been having a burning sensation in her chest has been intermittent for the last week. States she has had a history of reflux in the past. States she had pain again tonight that was a burning pain states since resolved is currently pain-free. She states she has had some soreness in her right arm but had a fall before as well. Denies any shortness of breath denies any nausea denies any diaphoresis Associated symptoms: Deny abdominal pain, dyspnea, fever(s), nausea or vomiting Related Data Home Medications ?Medication ?Instructions ?Recorded ?Confirmed ascorbic acid (vitamin C) 500 mg 500 mg PO DAILY 04/17/23 08/22/24 tablet,extended release (Vitamin C ER) calcium carbonate (Calcium 600) 600 mg PO DAILY 04/17/23 08/22/24 cholecalciferol (vitamin D3) 25 25 mcg PO DAILY 04/17/23 08/22/24 mcg (1,000 unit) tablet (Vitamin D3) coenzyme Q10 30 mg capsule 30 mg PO DAILY 04/17/23 08/22/24 cranberry fruit 400 mg capsule 400 mg PO DAILY 04/17/23 08/22/24 curcumin-phosphatidylcholine 500 500 mg PO DAILY 04/17/23 08/22/24 mg capsule levothyroxine 50 mcg tablet 50 mcg PO QAM 04/17/23 08/22/24 lovastatin 40 mg tablet 40 mg PO DAILY 04/17/23 08/22/24 magnesium 200 mg tablet 200 mg PO DAILY 04/17/23 08/22/24 melatonin 5 mg tablet 5 mg PO BID 04/17/23 08/22/24 anqzyfau-fit-xkncp ac 400 1 tab PO DAILY 04/17/23 08/22/24 mcg-calcium carb 500 mg-vit K1 20 mcg tablet (Women's 50 Plus Multivitamin) clopidogrel 75 mg tablet 75 mg PO DAILY 08/22/24 08/22/24 sertraline 25 mg tablet 25 mg PO DAILY 08/22/24 08/22/24 Previous Rx's ?Medication ?Instructions ?Recorded aspirin 81 mg tablet,delayed 81 mg PO DAILY #30 tabs 04/17/23 release Allergies Allergy/AdvReac Type Severity Reaction Status Date / Time Penicillins Allergy ALGY-Rash Verified 07/31/25 04:38 Review of Systems Const: Denies: fever(s), chills, body aches or change in appetite ENMT: Denies: throat pain or dental pain Card: Reports: chest pain Resp: Denies: dyspnea GI: Denies: abdominal pain, nausea, vomiting or diarrhea Musc: Denies: neck pain or back pain Skin/Breast: Denies: rash Neuro: Denies: headache(s) PFSH ED PFSH: Medical History TIA (transient ischemic attack) Surgical History H/O eye surgery H/O right wrist surgery Social History Smoking and tobacco/nicotine status: never used tobacco/nicotine Alcohol intake: never Physical Exam Const: COMMON NORMALS: patient oriented x3 HENMT: COMMON NORMALS: normocephalic and atraumatic HEAD & SCALP: normocephalic and atraumatic Eye: COMMON NORMALS: conjunctivae normal CONJUNCTIVA: Yes conjunctivae normal Neck/C-Spine: COMMON NORMALS: full ROM and supple Chest: COMMONS NORMALS: normal inspection of the chest Resp: COMMON NORMALS: normal respiratory effort, No retractions, No use of accessory muscles and clear to auscultation bilaterally AUSCULTATION: clear to auscultation bilaterally Cardio: COMMON NORMALS: regular rate, regular rhythm and No murmurs present (Cardio) RATE: regular rate RHYTHM: regular rhythm GI: COMMON NORMALS: Normal to inspection, nondistended, normoactive bowel sounds present, Soft to palpation, non-tender and no masses PALPATION: Yes Soft to palpation Extremity: COMMON NORMALS: normal to inspection and full ROM Neuro: COMMON NORMALS: patient oriented x3, moves all extremities and no focal motor deficits Psych: COMMON NORMALS: mental status grossly normal, Normal thought process present and cooperative THOUGHT PROCESS: Normal thought process present Skin: COMMON NORMALS: no rashes or lesions noted and no wounds GENERAL SKIN EXAM: no rashes or lesions noted Course Vital Signs: Vital signs: Vital Signs Temperature 97.7 F 07/31/25 04:30 Pulse Rate 58 L 07/31/25 04:38 Respiratory Rate 18 07/31/25 04:38 Blood Pressure 149/66 07/31/25 04:38 Pulse Oximetry 99 07/31/25 04:38 Oxygen Delivery Me thod Room Air 07/31/25 04:30 MDM - Chest Pain Medical Decision Making 85-year-old female presented here with chest pain sounds more like reflux she does have a history reflux that she does not typically take her Protonix she has been pain-free here she has no signs of acute coronary syndrome her abdominal exam is benign no signs of acute surgical abdomen or pancreatitis she has no signs of dissection or pulm embolism. Initial troponin here is negative EKG is normal she is stable for discharge she is to take her Protonix daily she is to follow-up with her PCP and return if worsening I did go over EKG imaging and labs with her she understands agrees to plan Medical Records I reviewed the patient's medical records. Lab Data I reviewed the patient's lab results. 07/31/25 04:40 07/31/25 04:40 Laboratory Results WBC 4.57 10^3/uL (3.29-11.43) 07/31/25 04:40 RBC 4.58 10^6/uL (3.85-5.65) 07/31/25 04:40 Hgb 13.50 g/dL (11.27-16.99) 07/31/25 04:40 Hct 41.2 % (36-47) 07/31/25 04:40 MCV 90.0 fl (85-98) 07/31/25 04:40 MCH 29.5 pg (27-33) 07/31/25 04:40 MCHC 32.8 g/dL (30-55) 07/31/25 04:40 RDW 12.6 % (12.1-15.1) 07/31/25 04:40 Plt Count 153 10^3/cmm (157-399) L 07/31/25 04:40 MPV 8.7 fL (7.4-10.4) 07/31/25 04:40 Neut % (Auto) 44.4 % 07/31/25 04:40 Lymph % (Auto) 31.1 % 07/31/25 04:40 Morrison % (Auto) 13.8 % 07/31/25 04:40 Eos % (Auto) 9.6 % 07/31/25 04:40 Baso % (Auto) 0.7 % 07/31/25 04:40 Neut # (Auto) 2.03 10^3/uL (1.8-7.7) 07/31/25 04:40 Lymph # (Auto) 1.4 10^3/uL (0.8-4.8) 07/31/25 04:40 Morrison # (Auto) 0.6 10^3/uL (0.2-0.9) 07/31/25 04:40 Eos # (Auto) 0.4 10^3/uL (0.0-0.8) 07/31/25 04:40 Baso # (Auto) 0.0 10^3/uL (0.0-0.1) 07/31/25 04:40 Nucleated RBC % (auto) 0 % 07/31/25 04:40 Nucleated RBCs # 0.0 /100WBC 07/31/25 04:40 Sodium 141 mmol/L (136-145) 07/31/25 04:40 Potassium 3.9 mmol/L (3.5-5.1) 07/31/25 04:40 Chloride 104 mmol/L (98-107) 07/31/25 04:40 Carbon Dioxide 28 mmol/L (22-29) 07/31/25 04:40 Anion Gap 12.9 (5-19) 07/31/25 04:40 BUN 22 mg/dL (8-23) 07/31/25 04:40 Creatinine 0.7 mg/dL (0.5-0.9) 07/31/25 04:40 GFR Calculation Not Reportable 07/31/25 04:40 Glucose 107 mg/dL (65-115) 07/31/25 04:40 Calculated Osmolality 296 mOsm/kg (285-295) H 07/31/25 04:40 Calcium 9.3 mg/dL (8.5-10.5) 07/31/25 04:40 Total Bilirubin 0.4 mg/dL (0.15-1.2) 07/31/25 04:40 AST 26 U/L (0-32) 07/31/25 04:40 ALT 18 U/L (0-33) 07/31/25 04:40 Alkaline Phosphatase 75 U/L (35-105) 07/31/25 04:40 Troponin T Baseline 8 ng/L (0-10) 07/31/25 04:40 Total Protein 6.8 g/dL (6.6-8.7) 07/31/25 04:40 Albumin 4.4 g/dL (3.5-5.2) 07/31/25 04:40 Globulin 2.4 g/dL (1.3-4.6) 07/31/25 04:40 Lipase 74 U/L (13-60) H 07/31/25 04:40 Imaging Data CXR: I personally reviewed and interpreted this imaging study as follows: My impression: no acute abnormality All radiology interpretation(s) finalized by discharge EKG Data EKG 1: I personally reviewed and interpreted this EKG as follows: EKG interpretation date: 07/31/25 EKG interpretation time: 04:32 Interpretation: sinus marleny hr [address] elevation qrs 94 qtc 402 Clincial Decision Support The following clinical decision support tools were used to aid in care of the patient HEART Score -> History: Slightly Suspicous, EKG: Normal, Age: 65 or more yrs, Risk Factors: 1 or 2 Risk Factors, Troponin: Baseline Trop <16 ng/L. Resulting HEART Score: 3. Discharge Plan Discharge Patient Disposition: Home Clinical Impression: Chest pain Condition: Stable Prescriptions: No Action lovastatin 40 mg tablet 40 mg PO DAILY levothyroxine 50 mcg tablet 50 mcg PO QAM Women's 50 Plus Multivitamin 400 mcg-500 mg calcium-20 mcg Tablet 1 tab PO DAILY calcium carbonate [Calcium 600] 600 mg calcium (1,500 mg) Tablet 600 mg PO DAILY cranberry fruit 400 mg Capsule 400 mg PO DAILY Rx Instructions: administer with a meal ascorbic acid (vitamin C) [Vitamin C] 500 mg Tablet Extended Release 500 mg PO DAILY coenzyme Q10 [CoQ-10] 30 mg Capsule 30 mg PO DAILY magnesium 200 mg Tablet 200 mg PO DAILY cholecalciferol (vitamin D3) [Vitamin D3] 25 mcg (1,000 unit) Tablet 25 mcg PO DAILY melatonin 5 mg Tablet 5 mg PO BID curcumin-phosphatidylcholine 500 mg Capsule 500 mg PO DAILY aspirin 81 mg tablet,delayed release (DR/EC) 81 mg PO DAILY Qty: 30 0RF clopidogrel 75 mg tablet 75 mg PO DAILY sertraline 25 mg tablet 25 mg PO DAILY Discharge Orders: Discharge ED (Routine); Ordered 07/31/25 Ordered By: Hector Childers Referrals: Royer Stockton DO [Primary Care Provider, [facility]] - 4-7 days Discharge Diet: Advance as tolerated Discharge Activity: Resume usual activity Patient Instructions: Chest Pain (ED) Print Language: Australian Coding Level of Care Code ED Event Manager for Macy Schwab
--- OUTSIDE RECORDS SUMMARY | 2025-07-31 04:35 | XMS_ITS | Encounter Summary ---
Author Organization [email or web address] [facility] Address [address] [place] [address] Care Team Providers Care Granite Cutter Apprentice Name Role Phone Julio Valles DO Primary Care Provider Encounter Details Date Type Department Care Team (Latest Contact Info) Description 07/21/1999 Outpatient Historical [facility] Zan Alejo NO ADDRESS ON FILE Routine medical exam (Primary Dx); Screening for malignant neoplasm of the cervix; Other and unspecified hyperlipidemia; Arthropathy, unspecified, site unspecified Social History Tobacco Use Types Packs/Day Years Used Date Smoking Tobacco: Never Assessed Comments Unknown Sex and Gender Information Value Date Recorded Sex Assigned at Not on file Legal Sex Female 5:51 AM DIRECTOR OF VOCATIONAL GUIDANCE Gender Identity Not on file Sexual Orientation Not on file documented as of this encounter Plan of Treatment Not on file documented as of this encounter Visit Diagnoses Diagnosis Routine medical exam- Primary Routine general medical examination at a health care facility Screening for malignant neoplasm of the cervix Other and unspecified hyperlipidemia Arthropathy, unspecified, site unspecified documented in this encounter Care Teams Granite Cutter Apprentice Relationship Specialty Start Date End Date Julio Valles DO [address] [place] [address] PCP - General 08/13/03 documented as of this encounter
--- OUTSIDE RECORDS SUMMARY | 2025-07-31 04:35 | XMS_ITS | Encounter Summary ---
Author Organization [facility] Address [address] [place] [address] Care Team Providers Care Elementary [employer] Art Teacher Name Role Phone Julio Valles DO Primary Care Provider Encounter Details Date Type Department Care Team (Latest Contact Info) Description 02/22/1999 Outpatient Historical [facility] EnedeliaZan schofield NO ADDRESS ON FILE Enthesopathy of unspecified site (Primary Dx) Social History Tobacco Use Types Packs/Day Years Used Date Smoking Tobacco: Never Assessed Comments Unknown Sex and Gender Information Value Date Recorded Sex Assigned at Not on file Legal Sex Female 5:51 AM DIRECTOR OF STUDENT SERVICES Gender Identity Not on file Sexual Orientation Not on file documented as of this encounter Plan of Treatment Not on file documented as of this encounter Visit Diagnoses Diagnosis Enthesopathy of unspecified site- Primary documented in this encounter Care Teams Elementary [employer] Art Teacher Relationship Specialty Start Date End Date Julio Valles DO [address] [place] [address] PCP - General 08/13/03 documented as of this encounter
--- OUTSIDE RECORDS SUMMARY | 2025-07-31 04:35 | XMS_ITS | Clinical Summary ---
Author Organization [facility] Address [address] Woods: [place] [address] Care Team Providers Care Filler Mixer Name Role Phone Julio Valles DO Primary Care Provider Immunizations Immunization Administration Dates Next Due Influenza Seasonal Unspecified Formulation IM Social History Tobacco Use Types Packs/Day Years Used Date Smoking Tobacco: Never Assessed Comments Unknown Sex and Gender Information Value Date Recorded Sex Assigned at Not on file Legal Sex Female 5:51 AM GRAPHIC COORDINATOR Gender Identity Not on file Sexual Orientation Not on file Plan of Treatment Health Maintenance Due Date Last Done Comments DTAP/TDAP/TD VACCINES (1 - Tdap) 02/15/1959 PNEUMOCOCCAL VACCINE 50+ YEARS (1 of 1 - PCV) 02/15/19 90 ZOSTER VACCINE (1 of 2) 02/15/1990 OSTEOPOROSIS SCREENING 02/15/2005 RSV VACCINE (60+ or ) (1 - 1-dose 75+ series) 02/15/2015 INFLUENZA VACCINE (#1) 2025 08/14/2008 Care Teams Filler Mixer Relationship Specialty Start Date End Date Julio Valles DO [address] [place] [address] PCP - General 08/13/03
--- OUTSIDE RECORDS SUMMARY | 2025-07-31 04:35 | XMS_ITS | Encounter Summary ---
Author Organization [facility] Address [address] [place] [address] Care Team Providers Care Interchange Agent Name Role Phone Julio Valles DO Primary Care Provider Encounter Details Date Type Department Care Team (Latest Contact Info) Description 02/19/2001 Outpatient Historical [facility] Zan Alejo NO ADDRESS ON FILE Unspecified follow-up examination (Primary Dx) Social History Tobacco Use Types Packs/Day Years Used Date Smoking Tobacco: Never Assessed Comments Unknown Sex and Gender Information Value Date Recorded Sex Assigned at Not on file Legal Sex Female 5:51 AM PUPPET ENGINEER Gender Identity Not on file Sexual Orientation Not on file documented as of this encounter Plan of Treatment Not on file documented as of this encounter Visit Diagnoses Diagnosis Unspecified follow-up examination- Primary documented in this encounter Care Teams Interchange Agent Relationship Specialty Start Date End Date Julio Valles DO [address] [place] [address] PCP - General 08/13/03 documented as of this encounter
--- OUTSIDE RECORDS SUMMARY | 2025-07-31 04:35 | XMS_ITS | Encounter Summary ---
Author Organization [facility] Address [address] [place] [address] Care Team Providers Care Incident Engineer Name Role Phone Julio Valles DO Primary Care Provider Encounter Details Date Type Department Care Team (Latest Contact Info) Description 08/13/2003 Outpatient Historical [facility] [place] [address] [address] Devon Lassiter MD [address] [address] ESOPHAGEAL REFLUX (Primary Dx) Social History Tobacco Use Types Packs/Day Years Used Date Smoking Tobacco: Never Assessed Comments Unknown Sex and Gender Information Value Date Recorded Sex Assigned at Not on file Legal Sex Female 5:51 AM DIGITAL ADVERTISING ANALYST Gender Identity Not on file Sexual Orientation Not on file documented as of this encounter Plan of Treatment Not on file documented as of this encounter Visit Diagnoses Diagnosis Esophageal reflux- Primary documented in this encounter Care Teams Incident Engineer Relationship Specialty Start Date End Date Julio Valles DO [address] [place] [address] PCP - General 08/13/03 documented as of this encounter
--- OUTSIDE RECORDS SUMMARY | 2025-07-31 04:35 | XMS_ITS | Encounter Summary ---
Author Organization [facility] Address [address] [place] [address] Care Team Providers Care Process Safety Management Engineer Name Role Phone Julio Valles DO Primary Care Provider Encounter Details Date Type Department Care Team (Latest Contact Info) Description 02/12/2001 Outpatient Historical [facility] Zan Alejo NO ADDRESS ON FILE Benign duarte skin trunk (Primary Dx) Social History Tobacco Use Types Packs/Day Years Used Date Smoking Tobacco: Never Assessed Comments Unknown Sex and Gender Information Value Date Recorded Sex Assigned at Not on file Legal Sex Female 5:51 AM SHIPPING SUPPORT Gender Identity Not on file Sexual Orientation Not on file documented as of this encounter Plan of Treatment Not on file documented as of this encounter Visit Diagnoses Diagnosis Benign duarte skin trunk- Primary Benign neoplasm of skin of trunk, except scrotum documented in this encounter Care Teams Process Safety Management Engineer Relationship Specialty Start Date End Date Julio Valles DO [address] [place] [address] PCP - General 08/13/03 documented as of this encounter
--- OUTSIDE RECORDS SUMMARY | 2025-07-31 04:35 | XMS_ITS | Encounter Summary ---
Author Organization [facility] Address [address] [place] [address] Care Team Providers Care Websphere Process Server Developer Name Role Phone Julio Valles DO Primary Care Provider Encounter Details Date Type Department Care Team (Latest Contact Info) Description 12/20/2000 Outpatient Historical [facility] Zan Alejo NO ADDRESS ON FILE Other and unspecified hyperlipidemia (Primary Dx) Social History Tobacco Use Types Packs/Day Years Used Date Smoking Tobacco: Never Assessed Comments Unknown Sex and Gender Information Value Date Recorded Sex Assigned at Not on file Legal Sex Female 5:51 AM WARP TRUCKER Gender Identity Not on file Sexual Orientation Not on file documented as of this encounter Plan of Treatment Not on file documented as of this encounter Visit Diagnoses Diagnosis Other and unspecified hyperlipidemia- Primary documented in this encounter Care Teams Websphere Process Server Developer Relationship Specialty Start Date End Date Julio Valles DO [address] [place] [address] PCP - General 08/13/03 documented as of this encounter
--- OUTSIDE RECORDS SUMMARY | 2025-07-31 04:35 | XMS_ITS | Encounter Summary ---
Author Organization [facility] Address [address] [place] [address] Care Team Providers Care Housing Management Representative Name Role Phone Julio Valles DO Primary Care Provider Encounter Details Date Type Department Care Team (Latest Contact Info) Description 10/04/1999 Outpatient Historical [facility] Zan Alejo NO ADDRESS ON FILE Other malaise and fatigue (Primary Dx) Social History Tobacco Use Types Packs/Day Years Used Date Smoking Tobacco: Never Assessed Comments Unknown Sex and Gender Information Value Date Recorded Sex Assigned at Not on file Legal Sex Female 5:51 AM SUPPLY ROOM CLERK Gender Identity Not on file Sexual Orientation Not on file documented as of this encounter Plan of Treatment Not on file documented as of this encounter Visit Diagnoses Diagnosis Other malaise and fatigue- Primary documented in this encounter Care Teams Housing Management Representative Relationship Specialty Start Date End Date Julio Valles DO [address] [place] [address] PCP - General 08/13/03 documented as of this encounter
--- OUTSIDE RECORDS SUMMARY | 2025-07-31 04:35 | XMS_ITS | Encounter Summary ---
Author Organization [facility] Address [address] [place] [address] Care Team Providers Care Retail Attendant Name Role Phone Julio Valles DO Primary Care Provider Encounter Details Date Type Department Care Team (Latest Contact Info) Description 07/11/2000 Outpatient Historical [facility] EnedeliaZan schofield NO ADDRESS ON FILE Arrest of bone growth (Primary Dx); Dyspepsia and other specified disorders of function of stomach Social History Tobacco Use Types Packs/Day Years Used Date Smoking Tobacco: Never Assessed Comments Unknown Sex and Gender Information Value Date Recorded Sex Assigned at Not on file Legal Sex Female 5:51 AM CONVEYOR WEIGHER OPERATOR Gender Identity Not on file Sexual Orientation Not on file documented as of this encounter Plan of Treatment Not on file documented as of this encounter Visit Diagnoses Diagnosis Arrest of bone growth- Primary Arrest of bone development or growth Dyspepsia and other specified disorders of function of stomach documented in this encounter Care Teams Retail Attendant Relationship Specialty Start Date End Date Julio Valles DO [address] [place] [address] PCP - General 08/13/03 documented as of this encounter
--- OUTSIDE RECORDS SUMMARY | 2025-07-31 04:35 | XMS_ITS | Encounter Summary ---
Author Organization [facility] Address [address] [place] [address] Care Team Providers Care Tip Tester Name Role Phone Julio Valles DO Primary Care Provider Encounter Details Date Type Department Care Team (Latest Contact Info) Description 08/16/2000 Outpatient Historical [facility] [address] [place] [address] Anthony Brown NO ADDRESS ON FILE Carpal tunnel syndrome (Primary Dx) Social History Tobacco Use Types Packs/Day Years Used Date Smoking Tobacco: Never Assessed Comments Unknown Sex and Gender Information Value Date Recorded Sex Assigned at Not on file Legal Sex Female 5:51 AM MIXER WET POUR Gender Identity Not on file Sexual Orientation Not on file documented as of this encounter Plan of Treatment Not on file documented as of this encounter Visit Diagnoses Diagnosis Carpal tunnel syndrome- Primary documented in this encounter Care Teams Tip Tester Relationship Specialty Start Date End Date Julio Valles DO [address] [place] [address] PCP - General 08/13/03 documented as of this encounter
--- OUTSIDE RECORDS SUMMARY | 2025-07-31 04:35 | XMS_ITS | Encounter Summary ---
Author Organization [facility] Address [address] [place] [address] Care Team Providers Care Public Services Assistant Name Role Phone Julio Valles DO Primary Care Provider Encounter Details Date Type Department Care Team (Latest Contact Info) Description 08/13/2003 Outpatient Historical [facility] [place] [address] [place] [address] Devon Lassiter MD [address] [place] [address] ESOPHAGEAL REFLUX (Primary Dx) Social History Tobacco Use Types Packs/Day Years Used Date Smoking Tobacco: Never Assessed Comments Unknown Sex and Gender Information Value Date Recorded Sex Assigned at Not on file Legal Sex Female 5:51 AM SENIOR ABAP DEVELOPER Gender Identity Not on file Sexual Orientation Not on file documented as of this encounter Plan of Treatment Not on file documented as of this encounter Visit Diagnoses Diagnosis Esophageal reflux- Primary documented in this encounter Care Teams Public Services Assistant Relationship Specialty Start Date End Date Julio Valles DO [address] [place] [address] PCP - General 08/13/03 documented as of this encounter
--- OUTSIDE RECORDS SUMMARY | 2025-07-31 04:35 | XMS_ITS | Encounter Summary ---
Author Organization [facility] Address [address] Woods: [place] [address] Care Team Providers Care Hot Plate Plywood Press Operator Name Role Phone Julio Valles DO Primary Care Provider Encounter Details Date Type Department Care Team (Late st Contact Info) Description 08/21/2000 Outpatient Historical McgeeDevon MD [address] [facility] [address] [place] [address] Social History Tobacco Use Types Packs/Day Years Used Date Smoking Tobacco: Never Assessed Comments Unknown Sex and Gender Information Value Date Recorded Sex Assigned at Not on file Legal Sex Female 5:51 AM FOOD AND BEVERAGE LEAD Gender Identity Not on file Sexual Orientation Not on file documented as of this encounter Plan of Treatment Not on file documented as of this encounter Visit Diagnoses Not on filedocumented in this encounter Care Teams Hot Plate Plywood Press Operator Relationship Specialty Start Date End Date Julio Valles DO [address] [place] [address] PCP - General 08/13/03 documented as of this encounter
--- OUTSIDE RECORDS SUMMARY | 2025-07-31 04:35 | XMS_ITS | Encounter Summary ---
Author Organization [facility] [employer] Address [address] [place] [address] Care Team Providers Care Medical Coding Manager Name Role Phone Julio Valles DO Primary Care Provider Encounter Details Date Type Department Care Team (Latest Contact Info) Description 02/21/2001 Outpatient Historical [facility] Zan Alejo NO ADDRESS ON FILE Unspecified follow-up examination (Primary Dx) Social History Tobacco Use Types Packs/Day Years Used Date Smoking Tobacco: Never Assessed Comments Unknown Sex and Gender Information Value Date Recorded Sex Assigned at Not on file Legal Sex Female 5:51 AM INTENSIVE CARE AMBULANCE PARAMEDIC Gender Identity Not on file Sexual Orientation Not on file documented as of this encounter Plan of Treatment Not on file documented as of this encounter Visit Diagnoses Diagnosis Unspecified follow-up examination- Primary documented in this encounter Care Teams Medical Coding Manager Relationship Specialty Start Date End Date Julio Valles DO [address] [place] [address] PCP - General 08/13/03 documented as of this encounter
--- OUTSIDE RECORDS SUMMARY | 2025-07-31 04:35 | XMS_ITS | Patient Health Record ---
Author Organization [facility] Address [address] [place] [address] Care Team Providers Care Manager Outreach Name Role Phone Mahin SANTOS Royer Primary Care Provider Unavail able Nilton Zuleta Unavailable Allergies Allergen (clinical drug ingredient) Drug/Non Drug Allergy documented on EMR Reaction Allergy Type Onset Date Status Penicillin Unknown Drug Allergy Active Results Component Value Reference Range Notes Diagnostic Colonoscopy-[id number] Reviewed date:08/29/2024 01:23:04 PM Interpretation: Performing Lab: Notes/Report: EGD, Upper GI Diagnostic-[id number] Reviewed date:08/29/2024 01:23:11 PM Interpretation: Performing Lab: Notes/Report: EGD, Upper GI Diagnostic-[id number] Reviewed date:08/22/2024 11:58:53 AM Interpretation: Performing Lab: Notes/Report: Diagnostic Colonoscopy-[id number] Reviewed date:08/22/2024 11:58:35 AM Interpretation: Performing Lab: Notes/Report: Reason For Referral No Information Medications Medication SIG (Take, Route, Frequency, Duration) Notes Start Date End Date Status Vitamin D3 25 MCG (1000 UT) Tablet 1 tablet Orally Once a day Active Vitamin C 500 MG Capsule as directed Orally Active Curcumin 95 500 MG Capsule as directed Orally Active Lovastatin 40 MG Tablet 1 tablet with th e evening meal Orally Once a day Active Calcium 500 MG Tablet 1 tablet with meal s Orally Twice a day Active CoQ-10 30 MG Capsule as directed Orally Active Vitamin E 450 MG (1000 UT) Capsule as directed Orally Active Zinc 30 MG Tablet 1 tablet Orally Once a day Active Pantoprazole Sodium 20 MG Tablet Delayed Release 1 tablet Orally Once a day Active Melatonin 3 MG Tablet 1 tablet at bedtim e as needed Orally Once a day Active Sertraline HCl 25 MG Tablet 1 tablet Ora lly Once a day Active Magnesium 300 MG Capsule 1 capsule with a meal Orally Once a day Active Levothyroxine Sodium 25 MCG Tablet 1 tablet in the morning on an empty stomach Orally Once a day Active Cranberry 500 MG Capsule as directed Orally Active Clopidogrel Bisulfate 75 MG Tablet 1 tablet Orally Once a day Active Vitamin B 12 500 MCG Tablet 1 tablet Ora lly Once a day Active Social History Tobacco Use: Social History Observation Description Date Details (start date - stop date) Never Smoker NA - NA Social History Drugs/Alcohol: Social Info Question Answer Notes Drugs Have you used drugs other than those for medical reasons in the past 12 months? No Drug/Alcohol: Social Info Question Answer Notes AUDIT-C (Standard) Did you have a drink containing alcohol in the past year? No Points 0 Interpretation Negative Tobacco Use: Social Info Question Answer Notes Tobacco Control (Standard) Tobacco use: Nonsmoker Problems Problem Type SNOMED Code ICD Code Onset Dates Problem Status W/U Status Risk Notes Problem Abnormal feces (737188217) Positive colorectal cancer screening using Cologuard test (R19.5) Active confirmed Problem Gastroesophageal reflux disease (836740625) Gastroesophageal reflux disease, unspecified whether esophagitis present (K21.9) Active confirmed Vital Signs Heart Rate 79 /min 08/15/2024 Temperature 98.4 degrees Fahrenheit 08/15/2024 Blood pressure diastolic 66 mm Hg 08/15/2024 Height-cm 157.48 cm 08/15/2024 Oximetry 96 % 08/15/2024 Weight-kg 47.72 kg 08/15/2024 Height 62 in 08/15/2024 Blood pressure systolic 110 mm Hg 08/15/2024 Weight 105.2 lbs 08/15/2024 BMI 19.24 kg/m2 08/15/2024 Encounters Encounter Location Date Provider Diagnosis [facility] [address] [address] 08/15/2024 Nilton Zuleta Positive colorectal cancer screening using Cologuard test R19.5 [facility] [address] [place] [address] 08/21/2024 Nilton Zuleta Positive colorectal cancer screening using Cologuard test R19.5 and Blood in the stool K92.1 Assessments Encounter Date Diagnosis (ICD Code) Assessment Notes Treatment Notes Treatment Clinical Notes Section Notes 08/15/2024 Positive colorectal cancer screening using Cologuard test (ICD-10 - R19.5) I have tried everything I can do not to do a colonoscopy. Her labs look good, but unfortunately her occult blood tests were positive. --- to be completed at [facility] -x--to be completed at [facility] ---to be completed at [facility] ---to be completed at [facility] 08/21/2024 Positive colorectal cancer screening using Cologuard test (ICD-10 - R19.5) 08/21/2024 Blood in the stool (ICD-10 - K92.1) 08/21/2024 Other see scanned document from [facility] in patients documents. Plan Of Treatment No Information Insurance Providers Payer Name Payer Address Payer Phone Subscriber Number Group Number Insured Name Patient Relationship to Insured Coverage Start Date Coverage End Date [employer] [address] [address] [place] [address] [id number] Roxanna Leone Self - patient is the insured Medical (General) History Medical History History ICD Code TIA Surgical History Surgery Date(Month/Year) R eye surgery 10 years old
--- OUTSIDE RECORDS SUMMARY | 2025-07-31 04:35 | XMS_ITS | Encounter Summary ---
Author Organization [facility] Address [address] [place] [address] Care Team Providers Care Machine Programmer Name Role Phone Julio Valles DO Primary Care Provider Encounter Details Date Type Department Care Team (Latest Contact Info) Description 12/04/2000 Outpatient Historical [facility] Zan Alejo NO ADDRESS ON FILE Gynecologic examination (Primary Dx); Screening for malignant neoplasm of the cervix; Special screening for malignant neoplasms of other sites; Other and unspecified hyperlipidemia Social History Tobacco Use Types Packs/Day Years Used Date Smoking Tobacco: Never Assessed Comments Unknown Sex and Gender Information Value Date Recorded Sex Assigned at Not on file 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
--- OUTSIDE RECORDS SUMMARY | 2025-07-31 04:35 | XMS_ITS | Encounter Summary ---
Author Organization [facility] Address [address] 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
--- OUTSIDE RECORDS SUMMARY | 2025-07-31 04:35 | XMS_ITS | Encounter Summary ---
Author Organization [employer] Address [address] [place] [address] Care Team Providers Care Manager Of Financial Planning Name Role Phone Julio Valles DO Primary Care Provider Encounter Details Date Type Department Care Team (Latest Contact Info) Description 12/07/2000 Outpatient Historical [facility] EnedeliaZan schofield NO ADDRESS ON FILE Screening for other and unspecified endocrine, nutritional, metabolic, and immunity disorders (Primary Dx) Social History Tobacco Use Types Packs/Day Years Used Date Smoking Tobacco: Never Assessed Comments Unknown Sex and Gender Information Value Date Recorded Sex Assigned at Not on file 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
--- OUTSIDE RECORDS SUMMARY | 2025-07-31 04:35 | XMS_ITS | Encounter Summary ---
Author Organization [facility] Address [address] [place] [address] Care Team Providers Care Estimate Clerk Name Role Phone Julio Valles DO Primary Care Provider Encounter Details Date Type Department Care Team (Latest Contact Info) Description 06/27/2000 Outpatient Historical [facility] Zan Alejo NO ADDRESS ON FILE Osteoporosis, unspecified (Primary Dx); Attention to dressings and sutures Social History Tobacco Use Types Packs/Day Years Used Date Smoking Tobacco: Never Assessed Comments Unknown Sex and Gender Information Value Date Recorded Sex Assigned at Not on file 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
[2025-07-31 04:38] VITALS: BP 149/66; PULSE 58; RESP 18; O2SAT 99
[2025-07-31 04:47] LABS: Hematocrit 41.2 % (36-47); Hemoglobin 13.50 g/dL (11.27-16.99); Mean Corpuscular HGB Conc 32.8 g/dL (30-55); Mean Corpuscular Hemoglobin 29.5 pg (27-33); Mean Corpuscular Volume 90.0 fl (85-98); Nucleated Red Blood Cells % 0 %; Platelet Count 153 10^3/cmm (157-399); Red Blood Count 4.58 10^6/uL (3.85-5.65); White Blood Count 4.57 10^3/uL (3.29-11.43)
[2025-07-31 05:10] LABS: Troponin(5th) Baseline 8 ng/L (0-10)
[2025-07-31 05:19] LABS: Alanine Aminotransferase 18 U/L (0-33); Albumin Level 4.4 g/dL (3.5-5.2); Alkaline Phosphatase 75 U/L (35-105); Anion Gap 12.9 (5-19); Aspartate Amino Transferase 26 U/L (0-32); Blood Urea Nitrogen 22 mg/dL (8-23); Calcium 9.3 mg/dL (8.5-10.5); Carbon Dioxide 28 mmol/L (22-29); Chloride 104 mmol/L (98-107); Creatinine Clr Calc Pharmacy 39.2710; Globulin 2.4 g/dL (1.3-4.6); Glucose 107 mg/dL (65-115); Lipase 74 U/L (13-60); Osmolality Calculated 296 mOsm/kg (285-295); Potassium 3.9 mmol/L (3.5-5.1); Sodium 141 mmol/L (136-145); Total Protein 6.8 g/dL (6.6-8.7)
[2025-07-31 06:51] VITALS: PULSE 61; O2SAT 97
== END 2025-07-31 06:51 | disposition home or self-care (01) ==
PROVIDERS: Emergency Provider Emergency Medicine; PCP Electrodiagnostic Medicine
DX: R07.9 Chest pain, unspecified (principal); Z79.82 Long term (current) use of aspirin; Z79.02 Long term (current) use of antithrombotics/antiplatelets; Z86.73 Personal history of transient ischemic attack (TIA), and cerebral infarction without residual deficits
CPT/HCPCS: 71045; 80053; 83690; 84484; 85025; 93005; 99285